=== PATIENT | male | born 1985 | race Two or more races ===

== ENCOUNTER 2019-05-11 00:20 | Emergency (ER) | payer BC, OTHER ==
[~2019-05-11] VITALS: Ht 180.3 cm; Wt 154.2 kg
[~2019-05-11 00:20] MED LIST: AMOX500 PO; Augmentin 875-1 EACH PO; Bactrim Ds Tab1 EACH PO; PSEU120ER PO; Percocet 5-3251 EACH PO
[2019-05-11] MEDS ORDERED: Bactrim Ds Tab1 EACH PO (03:40)
[2019-05-11] MEDS ORDERED: Keflex500 MG PO (03:40)
== END 2019-05-11 04:03 | disposition home or self-care (01) ==
LOC: ER 00:20
DX: L02.415 Cutaneous abscess of right lower limb (principal)
CPT/HCPCS: 10061; 82947; 96372; 99282-25; J1885

== ENCOUNTER 2023-03-01 15:37 | Emergency (ER) | payer OTHER ==
[~2023-03-01] VITALS: Ht 185.4 cm; Wt 142.0 kg
[~2023-03-01 15:37] MED LIST changes: +Keflex500 MG PO
[2023-03-01 15:53] VITALS: BP 158/109
== END 2023-03-01 17:44 | disposition home or self-care (01) ==
LOC: ER 15:37
DX: S61.012A Laceration without foreign body of left thumb without damage to nail, initial encounter (principal); W29.3XXA Contact with powered garden and outdoor hand tools and machinery, initial encounter
CPT/HCPCS: 12002; 73140; 90471; 90714; 96372-59; 99283-25; A9270; J1885